=== PATIENT | male | born 1975 | race African-American/Black ===

== ENCOUNTER 2020-01-06 03:07 | Emergency (ER) | payer OTHER ==
[~2020-01-06] VITALS: Ht 180.3 cm; Wt 79.0 kg
[2020-01-06] MEDS ORDERED: LIDOCAINE HCL/EPINEPHRINE 1%-EPI 1:100,000 20 ML VIAL MC SCH (03:45)
[2020-01-06] MEDS ORDERED: LIDOCAINE HCL 1%/EPI 1:200,000 30 ML VIAL MC ONE (03:45)
[2020-01-06] MEDS ORDERED: TETANUS, DIPHTHERIA, PERTUSSIS VAC/PF 0.5ML (>7YR OLD) IM ONE (04:30)
[2020-01-06 04:59] VITALS: BP 125/80
== END 2020-01-06 05:07 | disposition home or self-care (01) ==
LOC: ER 04:15
DX: S01.81XA Laceration without foreign body of other part of head, initial encounter (principal); Z93.3 Colostomy status; Z98.890 Other specified postprocedural states; Y00.XXXA Assault by blunt object, initial encounter; Y93.89 Activity, other specified; Y92.018 Other place in single-family (private) house as the place of occurrence of the external cause; Y99.8 Other external cause status
CPT/HCPCS: 12011; 90471; 90715; 99283; J3490